=== PATIENT | female | born 1970 ===

== ENCOUNTER 2019-12-13 06:43 | Inpatient (IN) | payer OTHER ==
[2019-12-13] MEDS ORDERED: Ondansetron PF 4 MG/2 ML Vial IVP PRN (09:43)
[2019-12-13] MEDS ORDERED: Ondansetron ODT 4 MG TAB PO PRN (09:43)
[2019-12-13] MEDS ORDERED: Senokot S 8.6-50 MG TAB PO PRN (09:43)
[2019-12-13] MEDS ORDERED: Acetaminophen 325 MG TAB PO PRN (09:43)
[2019-12-13] MEDS ORDERED: Acetaminophen 650 MG Suppository PR PRN (09:43)
[2019-12-13] MEDS ORDERED: Bisacodyl 5 MG TAB PO PRN (09:43)
[2019-12-13] MEDS ORDERED: Calcium Carbonate 500 MG ChewTAB PO PRN (09:43)
[2019-12-13] MEDS ORDERED: Dexamethasone 4 MG in Sodium Chloride 0.9% 50 ML IVPB SCH ×3 (10:00→21:00)
--- NOTE | 2019-12-13 10:38 | RAD ---
Frontal radiograph chest: 12/13/2019 COMPARISON: None HISTORY: Shortness of breath, hypoxia FINDINGS: Shallow inspiration limits detailed assessment. Focal opacity in the left base noted with p artial obscuration of the left hemidiaphragm. Mild hazy density in the right perihilar/right infrahilar region. No pneumothorax. IMPRESSION: Focal opacity in the left lung base suspicious for infectious pneumonitis or aspiration. Hazy increased density in the right base may signify volume loss or mild airspace disease. PA and lateral imaging of the chest following treatment advised.
[2019-12-13 10:41] LABS: ALT (SGPT) 18 U/L (8-55); AST (SGOT) 26 U/L (5-34); Albumin 4.2 g/dL (3.5-5.0); Alkaline Phosphatase 66 U/L (40-110); Anion Gap 15 mmol/L (10-20); BUN (Urea Nitrogen) 16 mg/dL (9.8-20.1); Bilirubin, Total 0.2 mg/dL (0.2-1.2); Calc. Creatinine Clearance 0 mL/min (70-130); Calcium 8.9 mg/dL (7.8-10.44); Carbon Dioxide 28 mmol/L (22-29); Chloride 97 mmol/L (98-107); Estimated GFR-MDRD 88; Globulin 3.8 g/dL (2.4-3.5); Glucose 134 mg/dL (70-105); Sodium 136 mmol/L (136-145)
[2019-12-13] MEDS ORDERED: Azithromycin 250 MG TAB PO SCH (10:45)
--- NOTE | 2019-12-13 10:52 | PDOC.FPRHP ---
- History of Present Illness Chief Complaint: SOB, Hypoxia History of Present Illness: Patient is a 49 yo female with PMHx of HTN who presents for direct admission for COVID positive Pneumonia and hypoxia. Patient originally was tested 6 days ago (approx. 12/07/2019) but we have no record of it. Symptoms started on 12/05/2019 making today day 8 of symptoms. Main complaints include dry cough, shortness of breath, and intermittent diarrhea. Says she has had fevers, max temp 102.5F at home. Last time she had a fever >100.4F was on 12/12/2019. Patient keeps an finger O2 monitor at home. Says this morning she noticed she was having to work harder to breathe and so checked her O2 sat, it was 79-82% so she told her daughter to drive her to nearest ER. At [facility] was noted to have O2 sat in low 80s and this improved to 95% once placed on 2L O2 via N/C. Patient reports that she has a 13 yo son and 21 yo daughter, both are also positive for COVID but are "doing okay" at home. ED Course: Noted to have O2 sat in low 80s at [facility] urgent care. Was placed on 2 L N/C there and called Dr. Holm for direct admission. Per verbal report from ED physician did have a CXR which showed bilateral infiltrates suggestive of PNA. Patient's PCP is Dr. Shearer. - Allergies/Adverse Reactions Allergies Allergy/AdvReac Type Severity Reaction Status Date / Time No Known Allergies Allergy Unverified 12/13/19 10:18 - Home Medications Medication Instructions Recorded Confirmed Type Lisinopril 20 mg PO DAILY 12/13/19 12/13/19 History - History PMHx: HTN PSHx: LTCS x 2 FHx: noncontributory Social: Denies smoking or EtOH use. Lives with 13 yo son and 21 yo daughter. Daughter is to make medical decision for her if needed. Patient is but says has been from for 5 years and she does not want him to make decisions on her behalf. - Review of Systems General: reports: fever/chills, fatigue Eyes: denies: vision changes ENT: denies: nasal congestion, rhinorrhea Respiratory: reports: cough, shortness of breath. denies: congestion Cardiovascular: denies: chest pain, palpitation, edema Gastrointestinal: reports: diarrhea. denies: nausea, vomiting, constipation, abdominal pain Genitourinary: denies: dysuria Skin: denies: rashes, lesions, jaundice Musculoskeletal: denies: pain, swelling, arthritis/arthralgias Neurological: denies: weakness Psychological: denies: anxiety, depression - Vital signs BP: 127/82 HR: 74 RR: 20 Tmax: 98.0F Pox: 96% on 2L - Physical Exam Constitutional: NAD, awake, alert and oriented, well developed HEENT: normocephalic and atraumatic, EOMI, no scleral icterus, grossly normal vision, grossly normal hearing, MMM Neck: FROM, no JVD Chest: no lesions Heart: pulses present, no edema Lungs: no respiratory distress Abdomen: soft, non-tender, no masses/distention Musculoskeletal: normal structure, normal tone, ROM grossly normal Neurological: no focal deficit, normal sensation Skin: no rash/lesions, good turgor, no jaundice Heme/Lymphatic: no unusual bruising or bleeding Psychiatric: normal mood and affect, intact recent and remote memory FMR H&P: Results - Labs Result Diagrams: 12/14/19 05:10 12/14/19 05:10 Lab results: Sodium 136 mmol/L (136-145) 12/13/19 10:03 Potassium 4.0 mmol/L (3.5-5.1) 12/13/19 10:03 Chloride 97 mmol/L (98-107) L 12/13/19 10:03 Carbon Dioxide 28 mmol/L (22-29) 12/13/19 10:03 BUN 16 mg/dL (9.8-20.1) 12/13/19 10:03 Creatinine 0.70 mg/dL (0.6-1.1) 12/13/19 10:03 Glucose 134 mg/dL (70-105) H 12/13/19 10:03 Calcium 8.9 mg/dL (7.8-10.44) 12/13/19 10:03 Total Bilirubin 0.2 mg/dL (0.2-1.2) 12/13/19 10:03 AST 26 U/L (5-34) 12/13/19 10:03 ALT 18 U/L (8-55) 12/13/19 10:03 Alkaline Phosphatase 66 U/L (40-110) 12/13/19 10:03 C-Reactive Protein 3.17 mg/dL (= or < 0.5) H 12/13/19 10:03 Serum Total Protein 8.0 g/dL (6.0-8.3) 12/13/19 10:03 Albumin 4.2 g/dL (3.5-5.0) 12/13/19 10:03 - Radiology Interpretation Chest x-ray Status: image reviewed by me, report reviewed by me (focal opacity in the left lung base suspicious for infectious pneumonitis or aspiration. Hazy increased density in the right base may signify volume loss or mild airspace disease. No pneumothorax.) FMR H&P: A/P - Problem List (1) Pneumonia due to COVID-19 virus Current Visit: Yes Status: Acute Code(s): U07.1 - COVID-19; J12.89 - OTHER VIRAL PNEUMONIA (2) Acute respiratory failure with hypoxia Current Visit: Yes Status: Acute Code(s): J96.01 - ACUTE RESPIRATORY FAILURE WITH HYPOXIA (3) Hypertension Current Visit: Yes Status: Acute Code(s): I10 - ESSENTIAL (PRIMARY) HYPERTENSION (4) Prediabetes Current Visit: Yes Status: Acute Code(s): R73.03 - PREDIABETES - Plan Patient is a 49 yo female who presents with shortness of breath is found to be positive for COVID-19 with suspected PNA: #Acute Hypoxic Respiratory Failure 2/ COVID 19 -tested positive for COVID19 on 12/07/2019 at outside urgent care, unable to view record of test so will re-swab here -per patient, symptoms started on 12/05/2019, day 8 of symptoms -CXR shows mild infiltrates of bilateral lung bases suspicious for pneumonitis vs aspiration, will cover with Azithromycin x 5 day course -obtain CBC, CMP, CRP, Ferritin, Procal, DDimer -start on Dexamethasone 4 mg IVP BID -place on Lovenox for VTE prophylaxis -obtain baseline ABG to assess for silent hypoxemia -consider consult ID or Pulm for Remdesevir and/or Convalescent Plasma administration once labs result -place on continuous O2 monitoring #Hypertension -continue home med Lisinopril 20 mg daily -monitor vitals #Prediabetes -per patient was told recently by PCP Dr. Shearer that she had prediabetes, is not taking any medications for this -monitor glucose checks, will start SSI if needed Diet: Regular VTE: Lovenox 40 daily Code status: FULL, patient states that her daughter is to make medical decision for her if needed. Is but from for 5 years and working on divorce proceedings. Dispo: Stable, admit to inpatient on medical unit. Will order lab studies to further evaluate. Monitor respiratory status. Consider ID consult once labs result if candidate for Remdesevir and/or plasma. Anticipate LOS >48 hours. Addendum - Attending - Attending Attestation Date/Time: 12/14/19 4691 I personally evaluated the patient and discussed the management with Dr. Barreto yesterday. I agree with the History, Examination, Assessment and Plan documented above with any addition or exceptions noted below.
[2019-12-13 10:54] LABS: #Lymphocytes 0.9 thou/uL (1.20-3.40); #Monocytes 0.3 thou/uL (0.11-0.59); #Neutrophils 2.9 thou/uL (1.40-6.50); %Basophils 0.2 % (0.0-1.0); %Eosinophils 0.1 % (0.0-10.0); %Lymphocytes 21.7 % (21.0-51.0); %Monocytes 6.6 % (0.0-10.0); %Neutrophils 71.3 % (42.0-75.0); Mean Corpuscular HGB CONC 31.7 g/dL (32.0-36.0); Mean Corpuscular Volume 75.7 fL (78.0-98.0); Mean Platelet Volume 9.9 fL (7.4-10.4); Platelet Count 209 thou/uL (130-400); RBC Distribution Width 11.9 % (11.5-14.5); Red Blood Cell (RBC) Count 5.41 mill/uL (4.20-5.40)
[2019-12-13 10:55] LABS: Hypochromia SLIGHT = 6-15 cells (100X) (0-5/hpf); MDiff Complete? YES; Microcytosis SLIGHT = 6-15 cells (100X) (0-5/hpf); Platelet Morphology Comment Appears Adequate; Polychromasia SLIGHT = 2-3 cells (100X) (0-2/hpf)
[2019-12-13 10:56] LABS: Actual Bicarbonate (HCO3a) 24.3 mEq/L (22-28); Base Excess (BEa) 0.7 mEq/L (-2.0 to +3.0); CO2 Tension 35.8 mmHg (35.0-45.0); Calcium, Ionized (arterial) 1.12 mmol/L (1.12-1.30); Carboxyhemoglobin (COHb) 0.4 gm% (0.0-3.0); O2 Tension (PaO2), arterial 85.4 mmHg (80.0-100.0); Potassium - ABG Lab 3.78 mmol/L (3.70-5.30); pH, Arterial 7.45 (7.35-7.45)
[2019-12-13 10:59] LABS: Puncture Site RRA
[2019-12-13] MEDS: Guaifenesin DM 100-10/5 ML UDCUP PO PRN (11:11)
[2019-12-13] MEDS ORDERED: REMDESIVIR (EUA) 200 MG in Sodium Chloride 0.9% 250 ML 210 ML IV SCH (13:00)
[2019-12-13 16:23] VITALS: BMI 23.0
[2019-12-13 17:51] LABS: SARS-CoV-2 MS2 Positive; SARS-CoV-2 N Gene Positive; SARS-CoV-2 S Gene Positive; SARS-CoV-2 by NAA DETECTED (NotDetected); SARS-CoV-2 orf1ab Positive
--- NOTE | 2019-12-13 18:41 | CON ---
DATE OF CONSULTATION: 12/13/2019 REASON FOR CONSULTATION: COVID infection. HISTORY OF PRESENT ILLNESS: A 49-year-old with history of hypertension, who has been sick since 12/04, and 2 days later tested positive for COVID. She then has developed worsening dyspnea with fever. She was monitoring her oximetry at home and sats were dropped to 79 and 82, so she was admitted. On arrival, BP 120/80, heart rate 74, respiratory rate 22, T-max 98, and O2 saturation 96% on 2 L. The exam was fairly unremarkable including lung exam. Other findings included white cell count 4.0, hemoglobin 13, platelets 209 a lymphocytopenia with total lymphocyte count of 0.9. D-dimer 0.4. A pH of 7.45, pCO2 of 35, and pO2 of 85. Sodium 136, creatinine 0.7, and glucose 134 with normal liver profile. CRP was 3.17 and ferritin 163. Currently, the patient is feeling actually well. Denies any headaches. Shortness of breath has resolved. She has a little bit of cough. No chest pain. No diarrhea. Diminished sense of smell noted. No abdominal pain. No genitourinary symptoms. No joint symptoms. MEDICAL HISTORY: Hypertension. SURGICAL HISTORY: LTCS x2. FAMILY HISTORY: Noncontributory. SOCIAL HISTORY: Never smoker. Lives with son and daughter. ALLERGY HISTORY: Negative. CURRENT MEDICATIONS: 1. Decadron. 2. Azithromycin. 3. P.r.n. medications. PHYSICAL EXAMINATION: VITAL SIGNS: Temperature is 98, she is saturating 96 on 2 L nasal cannula. SKIN: Normal. No lymphadenopathy. LUNGS: With faint crackles at right base. HEART: S1 and S2. Regular rate. No S3 or S4. ABDOMEN: Soft, not distended or tender. No ascites. No bladder distention. EXTREMITIES: No joint inflammatory activity. NEUROLOGIC: Nonfocal. LABORATORY DATA: Labs have been discussed above. Chest x-ray with a focal opacity in left lung base and hazy increased density right base as well. ASSESSMENT: 1. Hypertension. 2. COVID infection with at least moderate pneumonia. 3. Significant hypoxemia, required O2 supplementation. Eight day of illness. Liver and kidney function are okay. We will go ahead and start on remdesivir. Continue Decadron. Discontinue azithromycin. Heparin prophylaxis. Monitor daily inflammatory markers. Check LDH as well. The endpoint will be improvement of oxygenation maybe to the stage where she is going to be on room air at acceptable levels and decrease in the markers including ferritin, CRP, and D-dimer. She is going to the middle of the second week and that is when things start to sometimes deteriorate rapidly, so she will have to be carefully monitored in the next few days . Job ID: [id number] MTDD
[2019-12-13] MEDS: Enoxaparin Sodium 40 MG/0.4 ML SYRINGE SC SCH (21:14)
[2019-12-13] MEDS: Dexamethasone 4 mg/ml Vial SLOW IVP SCH (21:14)
[2019-12-14 05:27] LABS: #Monocytes 0.5 thou/uL (0.11-0.59); #Neutrophils 6.6 thou/uL (1.40-6.50); %Basophils 0.3 % (0.0-1.0); %Eosinophils 0.1 % (0.0-10.0); %Lymphocytes 12.5 % (21.0-51.0); %Monocytes 6.5 % (0.0-10.0); %Neutrophils 80.7 % (42.0-75.0); Hemoglobin 11.9 g/dL (12.0-16.0); Mean Corpuscular HGB CONC 32.3 g/dL (32.0-36.0); Mean Corpuscular Hemoglobin 24.2 pg (27.0-31.0); Mean Corpuscular Volume 75.1 fL (78.0-98.0); Platelet Count 229 thou/uL (130-400); White Blood Cell (WBC) Count 8.2 thou/uL (4.8-10.8)
[2019-12-14 06:00] LABS: ALT (SGPT) 19 U/L (8-55); AST (SGOT) 23 U/L (5-34); Albumin 3.8 g/dL (3.5-5.0); Alkaline Phosphatase 55 U/L (40-110); Anion Gap 12 mmol/L (10-20); BUN (Urea Nitrogen) 15 mg/dL (9.8-20.1); Bilirubin, Total Less than 0.2 mg/dL (0.2-1.2); Calc. Creatinine Clearance 90 mL/min (70-130); Calcium 8.3 mg/dL (7.8-10.44); Carbon Dioxide 28 mmol/L (22-29); Chloride 102 mmol/L (98-107); Estimated GFR-MDRD Greater than 90; Globulin 3.3 g/dL (2.4-3.5); Glucose 168 mg/dL (70-105); Potassium 4.3 mmol/L (3.5-5.1); Protein, Total 7.1 g/dL (6.0-8.3); Sodium 138 mmol/L (136-145)
[2019-12-14] MEDS: Dexamethasone 4 mg/ml Vial SLOW IVP SCH ×2 (07:58→21:15)
[2019-12-14] MEDS: Enoxaparin Sodium 40 MG/0.4 ML SYRINGE SC SCH ×2 (07:58→21:15)
[2019-12-14] MEDS: Guaifenesin DM 100-10/5 ML UDCUP PO PRN ×2 (08:01→21:15)
[2019-12-14] MEDS ORDERED: Enoxaparin Sodium 40 MG/0.4 ML SYRINGE SC SCH (09:00)
[2019-12-14] MEDS ORDERED: Azithromycin 250 MG TAB PO SCH (09:00)
--- NOTE | 2019-12-14 09:18 | PDOC.FM ---
- Subjective Subjective: Patient feeling better this morning. Was given Convalescent plasma yesterday. Also approved and started on Remdesevir course. Spoke with brother Gillian per patient request and plan discussed. No complaints this morning. - Objective MAR Reviewed: Yes Vital Signs & Weight: Vital Signs (12 hours) Temp Pulse Pulse Resp BP BP Pulse Ox 12/14/19 08:24 98.0 F 62 20 125/81 96 12/14/19 05:00 98.2 F 64 18 124/72 100 12/14/19 02:45 98.2 F 62 18 110/72 99 12/14/19 00:45 97.9 F 67 18 124/80 98 12/14/19 00:28 98.1 F 60 18 117/77 100 12/13/19 23:29 98.2 F 64 20 118/72 100 Weight Weight 57.153 kg I&O: 12/13/19 12/14/19 12/15/19 06:59 06:59 06:59 Intake Total 1690 Balance 1690 Result Diagrams: 12/14/19 05:10 12/14/19 05:10 Phys Exam - Physical Examination Constitutional: NAD HEENT: moist MMs, sclera anicteric Neck: supple, full ROM No respiratory distress. Even respirations. Gastrointestinal: soft, non-tender, no distention Musculoskeletal: no edema, pulses present Neurological: non-focal, normal sensation, moves all 4 limbs Psychiatric: normal affect, A&O x 3 Skin: no rash, normal turgor Dx/Plan (1) Pneumonia due to COVID-19 virus Code(s): U07.1 - COVID-19; J12.89 - OTHER VIRAL PNEUMONIA Status: Acute (2) Acute respiratory failure with hypoxia Code(s): J96.01 - ACUTE RESPIRATORY FAILURE WITH HYPOXIA Status: Acute (3) Hypertension Code(s): I10 - ESSENTIAL (PRIMARY) HYPERTENSION Status: Acute (4) Prediabetes Code(s): R73.03 - PREDIABETES Status: Acute - Plan Plan: Patient is a 49 yo female who presents with shortness of breath is found to be positive for COVID-19 with suspected PNA: #Acute Hypoxic Respiratory Failure 2/2 COVID 19 -initially O2 sat 79-82% at home, was in low 80s at urgent care facility, upon admission here was requiring 3.5L via N/C -tested positive for COVID19 on 12/07/2019 at outside urgent care, re-swab here positive on 12/12 -per patient, symptoms started on 12/05/2019, day 9 of symptoms -CXR shows mild infiltrates of bilateral lung bases suspicious for pneumonitis vs aspiration -given one dose Azithromycin, ID recs no further course -monitor CBC, CMP, CRP, Ferritin, Procal, DDimer -CRP 3.17 -Procal 0.03 > 0.02 -Ferritin 163 > 143 -DDimer 0.41 > 0.36 -start on Dexamethasone 4 mg IVP BID -place on Lovenox for VTE prophylaxis -baseline ABG to assess for silent hypoxemia, is wml -consider consult ID, Dr. Gutierrez for Remdesevir -patient consent obtained on 12/12 and Remdesevir course started -Convalescent Plasma on 12/12 -place on continuous O2 monitoring -currently 98-100% on 2L N/C #Hypertension -continue home med Lisinopril 20 mg daily -monitor vitals #Prediabetes -per patient was told recently by PCP Dr. Shearer that she had prediabetes, is not taking any medications for this -monitor glucose checks, will start SSI if needed Diet: Regular VTE: Lovenox 40 BID Code status: FULL, patient states that her daughter is to make medical decision for her if needed. Is but from for 5 years and working on divorce proceedings. Dispo: Stable, admit to inpatient on medical unit. Monitor daily inflammatory labs. Monitor respiratory status. Anticipate LOS >48 hours. Addendum - Attending - Attending Attestation Date/Time: 12/14/19 1202 I personally evaluated the patient and discussed the management with Dr. Barreto. I agree with the History, Examination, Assessment and Plan documented above with any addition or exceptions noted below. Patient seemed tired and discouraged today. She also felt like something was jsut not right in her chest other than covid. We will repeat CXR, check troponin and EKG. We appreciate Dr Velázquez's expertise and medication adjustment this week. We will reach out to [facility] today. We have asked Palliative care to assist with helping her connect with family. THis may improve her mental health.
[2019-12-14] MEDS: REMDESIVIR (EUA) 100 MG in Sodium Chloride 0.9% 250 ML 230 ML IV SCH (12:18)
--- NOTE | 2019-12-14 14:12 | PRG ---
DATE OF SERVICE: 12/14/2019 SUBJECTIVE: The patient is feeling improvement, less cough, less dyspnea. She has been able to breathe deeper. OBJECTIVE: VITAL SIGNS: Has been afebrile for a while now. Nasal cannula O2 has decreased to 2, and she is saturating at 97, and she is not tachypneic at this point. LUNGS: Still with crackles, scattered through right and left lung carlson. HEART: S1 and S2, regular rate. ABDOMEN: Soft, not distended. NEUROLOGIC: Nonfocal. LABORATORY DATA: White cell count 8.2, hemoglobin 11.9, and platelets 229. D-dimer is 0.36. Ferritin down to 143. ASSESSMENT AND DISCUSSION: COVID-19 infection with pneumonia, [id number] hypertension. Looks like she is responding well to the therapy and starting to improve an inflammatory process. Hopefully, we will continue improvement, able to be discharged home with or without O2 supplementation soon. Job ID: [id number]
[2019-12-15 05:29] LABS: #Lymphocytes 1.3 thou/uL (1.20-3.40); #Monocytes 0.6 thou/uL (0.11-0.59); #Neutrophils 7.1 thou/uL (1.40-6.50); %Basophils 0.2 % (0.0-1.0); %Eosinophils 0.1 % (0.0-10.0); %Lymphocytes 14.3 % (21.0-51.0); %Monocytes 6.8 % (0.0-10.0); %Neutrophils 78.6 % (42.0-75.0); Hemoglobin 12.3 g/dL (12.0-16.0); Mean Corpuscular HGB CONC 31.9 g/dL (32.0-36.0); Mean Corpuscular Hemoglobin 24.1 pg (27.0-31.0); Mean Corpuscular Volume 75.5 fL (78.0-98.0); Platelet Count 267 thou/uL (130-400); RBC Distribution Width 12.1 % (11.5-14.5)
[2019-12-15 05:55] LABS: ALT (SGPT) 20 U/L (8-55); AST (SGOT) 18 U/L (5-34); Albumin 3.7 g/dL (3.5-5.0); Alkaline Phosphatase 55 U/L (40-110); Anion Gap 13 mmol/L (10-20); BUN (Urea Nitrogen) 15 mg/dL (9.8-20.1); Bilirubin, Total 0.2 mg/dL (0.2-1.2); CRP (Inflammatory) 1.04 mg/dL (= or < 0.5); Calc. Creatinine Clearance 94 mL/min (70-130); Calcium 8.2 mg/dL (7.8-10.44); Carbon Dioxide 26 mmol/L (22-29); Chloride 99 mmol/L (98-107); Estimated GFR-MDRD Greater than 90; Globulin 3.1 g/dL (2.4-3.5); Glucose 161 mg/dL (70-105); Potassium 4.4 mmol/L (3.5-5.1); Protein, Total 6.8 g/dL (6.0-8.3); Sodium 134 mmol/L (136-145)
--- NOTE | 2019-12-15 06:50 | PDOC.FM ---
- Subjective Subjective: Patient is feeling well and improving. She appears comfortable on NC O2. She had questions/concerns about when she can return to work and about how she can pay her bills. - Objective MAR Reviewed: Yes Vital Signs & Weight: Vital Signs (12 hours) Temp Pulse Resp BP Pulse Ox 12/15/19 05:00 97.9 F 60 18 136/84 98 12/14/19 21:00 98 F 68 18 135/80 97 12/14/19 20:00 97 Weight Admit Weight 57.153 kg Weight 57.153 kg I&O: 12/13/19 12/14/19 12/15/19 06:59 06:59 06:59 Intake Total 1690 820 Balance 1690 820 Result Diagrams: 12/15/19 05:09 12/15/19 05:09 Phys Exam - Physical Examination Constitutional: NAD Respiratory: no wheezing, clear to auscultation bilateral Cardiovascular: RRR, no significant murmur Gastrointestinal: soft, no distention Musculoskeletal: no edema, pulses present Psychiatric: normal affect, A&O x 3 Dx/Plan - Plan Plan: Patient is a 49 yo female who presents with shortness of breath is found to be positive for COVID-19 with suspected PNA: #Acute Hypoxic Respiratory Failure 2/ COVID 19 -tested positive for COVID19 on 12/07/2019 at outside urgent care, re-swab here positive on 12/12 -per patient, symptoms started on 12/05/2019, day 10 of symptoms -1 dose azithromycin given then discontinued per ID -monitor inflammatory markers. -Dexamethasone 4 mg IVP BID -Lovenox for VTE prophylaxis -consider consult ID, Dr. Gutierrez for Remdesevir, s/p convalescent plasma -wean O2 #Hypertension -continue home med Lisinopril 20 mg daily -monitor vitals #Prediabetes -per patient was told recently by PCP Dr. Shearer that she had prediabetes, is not taking any medications for this -monitor glucose checks, will start SSI if needed Diet: Regular VTE: Lovenox 40 BID Code status: FULL, patient states that her daughter is to make medical decision for her if needed. Is but from for 5 years and working on divorce proceedings. Dispo: Stable, admit to inpatient on medical unit. Monitor daily inflammatory labs. Monitor respiratory status. Anticipate LOS >48 hours. Addendum - Attending - Attending Attestation Date/Time: 12/15/19 1288 I personally evaluated the patient and discussed the management with Dr. Rodriguez. I agree with the History, Examination, Assessment and Plan documented above with any addition or exceptions noted below.
[2019-12-15] MEDS: Dexamethasone 4 mg/ml Vial SLOW IVP SCH ×2 (08:08→20:59)
[2019-12-15] MEDS: Enoxaparin Sodium 40 MG/0.4 ML SYRINGE SC SCH ×2 (08:08→20:59)
[2019-12-15] MEDS: REMDESIVIR (EUA) 100 MG in Sodium Chloride 0.9% 250 ML 230 ML IV SCH (12:41)
[2019-12-15] MEDS: Guaifenesin DM 100-10/5 ML UDCUP PO PRN (20:59)
[2019-12-16 05:52] LABS: #Lymphocytes 1.6 thou/uL (1.20-3.40); #Monocytes 0.7 thou/uL (0.11-0.59); #Neutrophils 6.3 thou/uL (1.40-6.50); %Basophils 0.2 % (0.0-1.0); %Eosinophils 0.1 % (0.0-10.0); %Lymphocytes 18.7 % (21.0-51.0); %Monocytes 7.9 % (0.0-10.0); %Neutrophils 73.1 % (42.0-75.0); Hemoglobin 12.6 g/dL (12.0-16.0); Mean Corpuscular HGB CONC 31.5 g/dL (32.0-36.0); Mean Corpuscular Volume 76.3 fL (78.0-98.0); Mean Platelet Volume 9.1 fL (7.4-10.4); Platelet Count 296 thou/uL (130-400); Red Blood Cell (RBC) Count 5.26 mill/uL (4.20-5.40); White Blood Cell (WBC) Count 8.6 thou/uL (4.8-10.8)
[2019-12-16 06:04] LABS: ALT (SGPT) 26 U/L (8-55); AST (SGOT) 19 U/L (5-34); Albumin 3.6 g/dL (3.5-5.0); Alkaline Phosphatase 54 U/L (40-110); Anion Gap 13 mmol/L (10-20); BUN (Urea Nitrogen) 16 mg/dL (9.8-20.1); Bilirubin, Total 0.2 mg/dL (0.2-1.2); Calc. Creatinine Clearance 90 mL/min (70-130); Calcium 8.3 mg/dL (7.8-10.44); Carbon Dioxide 27 mmol/L (22-29); Chloride 100 mmol/L (98-107); Estimated GFR-MDRD Greater than 90; Globulin 3.3 g/dL (2.4-3.5); Glucose 170 mg/dL (70-105); Potassium 4.5 mmol/L (3.5-5.1); Protein, Total 6.9 g/dL (6.0-8.3); Sodium 135 mmol/L (136-145)
[2019-12-16] MEDS: Dexamethasone 4 mg/ml Vial SLOW IVP SCH ×2 (07:40→20:41)
[2019-12-16] MEDS: Enoxaparin Sodium 40 MG/0.4 ML SYRINGE SC SCH ×2 (07:40→20:41)
--- NOTE | 2019-12-16 09:26 | PDOC.FM ---
- Subjective Subjective: Feeling the same. Off of oxygen today. Mood is stable - Objective MAR Reviewed: Yes Vital Signs & Weight: Vital Signs (12 hours) Temp Pulse Resp BP Pulse Ox 12/16/19 08:00 98.1 F 63 18 147/87 H 97 12/16/19 07:16 97 12/16/19 04:00 98.1 F 62 18 128/79 97 12/15/19 23:59 97 12/15/19 23:58 98 F 64 18 97 Weight Admit Weight 57.153 kg Weight 57.153 kg I&O: 12/15/19 12/16/19 12/17/19 06:59 06:59 06:59 Intake Total 820 2590 Balance 820 2590 Result Diagrams: 12/16/19 05:37 12/16/19 05:37 Phys Exam - Physical Examination Constitutional: NAD HEENT: moist MMs Respiratory: no wheezing unchanged, stable. Cardiovascular: RRR, no significant murmur Psychiatric: normal affect, A&O x 3 Dx/Plan - Plan Plan: Patient is a 49 yo female who presents with shortness of breath is found to be positive for COVID-19 with suspected PNA: #Acute Hypoxic Respiratory Failure 2/ COVID 19, improved. -tested positive for COVID19 on 12/07/2019 at outside urgent care, re-swab here p ositive on 12/12 -per patient, symptoms started on 12/05/2019, day 11 of symptoms -monitor inflammatory markers. -Dexamethasone 4 mg IVP BID. transition to PO tomorrow. - on remdesivir, monitor LFT/CBC, complete course tomorrow. #Hypertension -continue home med Lisinopril 20 mg daily #Prediabetes - monitor. Diet: Regular VTE: Lovenox 40 BID Code status: FULL Dispo: inpatient medical. Discharge home after completion of remdesivir. Addendum - Attending - Attending Attestation Date/Time: 12/16/19 1102 I personally evaluated the patient and discussed the management with Dr. Rodriguez. I agree with the History, Examination, Assessment and Plan documented above with any addition or exceptions noted below.
[2019-12-16] MEDS: REMDESIVIR (EUA) 100 MG in Sodium Chloride 0.9% 250 ML 230 ML IV SCH (12:24)
[2019-12-17 05:51] LABS: #Lymphocytes 1.7 thou/uL (1.20-3.40); #Monocytes 0.7 thou/uL (0.11-0.59); #Neutrophils 5.3 thou/uL (1.40-6.50); %Basophils 0.4 % (0.0-1.0); %Eosinophils 0.1 % (0.0-10.0); %Lymphocytes 21.7 % (21.0-51.0); %Monocytes 8.5 % (0.0-10.0); %Neutrophils 69.2 % (42.0-75.0); Hemoglobin 12.4 g/dL (12.0-16.0); Mean Corpuscular Hemoglobin 24.3 pg (27.0-31.0); Mean Platelet Volume 9.1 fL (7.4-10.4); Platelet Count 334 thou/uL (130-400); Red Blood Cell (RBC) Count 5.12 mill/uL (4.20-5.40); White Blood Cell (WBC) Count 7.6 thou/uL (4.8-10.8)
[2019-12-17 06:12] LABS: ALT (SGPT) 32 U/L (8-55); AST (SGOT) 22 U/L (5-34); Albumin 3.5 g/dL (3.5-5.0); Alkaline Phosphatase 52 U/L (40-110); Anion Gap 11 mmol/L (10-20); BUN (Urea Nitrogen) 15 mg/dL (9.8-20.1); Bilirubin, Total 0.2 mg/dL (0.2-1.2); Calc. Creatinine Clearance 91 mL/min (70-130); Calcium 8.2 mg/dL (7.8-10.44); Carbon Dioxide 27 mmol/L (22-29); Chloride 98 mmol/L (98-107); Estimated GFR-MDRD Greater than 90; Glucose 192 mg/dL (70-105); Potassium 4.1 mmol/L (3.5-5.1); Protein, Total 6.5 g/dL (6.0-8.3); Sodium 132 mmol/L (136-145)
[2019-12-17] MEDS: Dexamethasone 4 mg/ml Vial SLOW IVP SCH (09:20)
[2019-12-17] MEDS: Enoxaparin Sodium 40 MG/0.4 ML SYRINGE SC SCH (09:20)
--- NOTE | 2019-12-17 11:21 | PDOC.FM ---
- Subjective Subjective: Patient feeling well this morning. Has remained on room air for last 3 days and is up walking around room. Due to receive last dose of Remdesevir at 1215. - Objective MAR Reviewed: Yes Vital Signs & Weight: Vital Signs (12 hours) Temp Pulse Resp BP Pulse Ox 12/17/19 09:20 98 12/17/19 04:13 97.8 F 64 18 128/82 94 L Weight Admit Weight 57.153 kg Weight 57.153 kg I&O: 12/16/19 12/17/19 12/18/19 06:59 06:59 06:59 Intake Total 2590 1650 Balance 2590 1650 Result Diagrams: 12/17/19 05:16 12/17/19 05:16 Phys Exam - Physical Examination Constitutional: NAD HEENT: moist MMs Neck: no JVD, supple, full ROM even respirations, equal chest rise and fall, no respiratory distress Cardiovascular: RRR Gastrointestinal: soft, no distention Musculoskeletal: no edema, pulses present Neurological: non-focal, normal sensation, moves all 4 limbs Psychiatric: normal affect, A&O x 3 Skin: no rash, normal turgor Dx/Plan (1) Pneumonia due to COVID-19 virus Code(s): U07.1 - COVID-19; J12.89 - OTHER VIRAL PNEUMONIA Status: Acute (2) Acute respiratory failure with hypoxia Code(s): J96.01 - ACUTE RESPIRATORY FAILURE WITH HYPOXIA Status: Acute (3) Hypertension Code(s): I10 - ESSENTIAL (PRIMARY) HYPERTENSION Status: Acute (4) Prediabetes Code(s): R73.03 - PREDIABETES Status: Acute - Plan Plan: Patient is a 49 yo female who presents with shortness of breath is found to be positive for COVID-19 with suspected PNA: #Acute Hypoxic Respiratory Failure 2/2 COVID 19, improved. -tested positive for COVID19 on 12/07/2019 at outside urgent care, re-swab here positive on 12/12 -per patient, symptoms started on 12/05/2019, day 12 of symptoms -monitor inflammatory markers. -Dexamethasone 4 mg IVP BID. transition to PO Prednisone upon discharge - on remdesivir, monitor LFT/CBC, complete course today at 1215 #Hypertension -continue home med Lisinopril 20 mg daily #Prediabetes - monitor. Diet: Regular VTE: Lovenox 40 BID Code status: FULL Dispo: inpatient medical. Discharge home today after completion of remdesivir.
[2019-12-17] MEDS: REMDESIVIR (EUA) 100 MG in Sodium Chloride 0.9% 250 ML 230 ML IV SCH (13:27)
--- NOTE | 2019-12-17 13:48 | PRG ---
DATE OF SERVICE: 12/17/2019 Ms. Sanchez is followed for COVID pneumonia as well as acute respiratory failure, hypertension, and prediabetes. She is feeling well this morning and has been on room air now for 3 days. I agree with the assessment and plan of . Job ID: [id number]
[2019-12-17 16:20] VITALS: BP 121/80; TEMP 97.9
--- NOTE | 2019-12-18 01:16 | DIS ---
DATE OF ADMISSION: 12/13/2019 DATE OF DISCHARGE: 12/17/2019 CONSULTS: Infectious Disease, Dr. Gutierrez. PROCEDURES: Chest x-ray on December 13, 2019: Focal opacity in the left lung base suspicious for infectious pneumonitis versus aspiration. Hazy increased density in the right base, may signify volume loss or mild airspace disease. PRIMARY DIAGNOSIS: Acute hypoxic respiratory failure secondary to COVID-19. SECONDARY DIAGNOSES: 1. Hypertension. 2. Prediabetes. DISCHARGE MEDICATIONS: 1. Lisinopril 20 mg p.o. daily. 2. Prednisone 40 mg p.o. daily for 5 additional days. DISCONTINUED MEDICATIONS: None. HISTORY OF PRESENT ILLNESS/HOSPITAL COURSE: The patient is a 49-year-old female with past medical history of hypertension, who presented for direct admission from [facility] for COVID-19 positive respiratory failure with hypoxia. The patient was originally tested with [facility] on December 07, 2019 and was found to be positive. Symptoms started on December 05, 2019, making her day #8 of symptoms upon admission. The patient's main complaints included a dry cough, shortness of breath, and intermittent diarrhea. The patient stated that she had fevers with a maximum temperature 102.5 Fahrenheit at home. Fevers lasted until December 12, 2019, and she had no fever since. The patient keeps a finger O2 monitor at home and stated on the morning of admission she noted she was having to work harder to breathe. When she checked her oxygen saturation, it was 79% to 82% , and so her daughter drove her to the closest Urgent Care. At [facility], the patient was noted to have oxygen saturations in the low 80s and this improved to 95% when she was placed on 2 L of oxygen via nasal cannula. The patient reported that she had a 13-year-old son and 21-year-old daughter, who were also positive for COVID symptoms but were doing okay with home management. The patient was admitted to inpatient on the medical floor. Chest x-ray was performed and was consistent with COVID-19. The patient also had COVID test repeated due to being unable to access the original test result. COVID testing at our facility confirmed COVID-19 positive. At this point, Infectious Disease, Dr. Gutierrez was consulted for remdesivir and convalescent plasma therapy. He approved this therapy which was started on December 13, 2019. The patient was also started on dexamethasone 4 mg IVP b.i.d., which she continued for duration of stay; this was transitioned to p.o. prednisone on day of discharge and will need to be continued for 5 additional days. The patient received the Lovenox therapeutic dosing during the hospital stay. The patient's home medication of lisinopril 20 mg daily was continued. The patient initially required oxygen support with 2 to 3 L via nasal cannula for first 2 days of admission. On December 13 afternoon, she was transitioned to room air and remained on room air for rest of stay. The patient's inflammatory markers including procalcitonin, ferritin, D-dimer, and CRP all were trended and trended down during her stay. The patient's clinical condition continued to improve. On December 17, 2019, the patient was discharged to home in a stable condition after completion of her remdesivir course. DISPOSITION: Stable. DISCHARGE INSTRUCTIONS: 1. Location: Home. 2. Diet: Regular. 3. Activity: As tolerated. 4. Follow up with PCP, Dr. Shearer in 7 days for hospital followup. Job ID: [id number]
== END 2019-12-17 16:29 | disposition home or self-care (01) | DRG 177 ==
LOC: T4-B 06:43 → UNDOADMIN 06:54
PROVIDERS: ADMIT Family Medicine; ATTEND Family Medicine
PROC: 8E0ZXY6 Isolation (ICD-10-PCS; principal; 2019-12-13)
PROC: XW033E5 Introduction of Remdesivir Anti-infective into Peripheral Vein, Percutaneous Approach, New Technology Group 5 (ICD-10-PCS; 2019-12-13)
PROC: XW13325 Transfusion of Convalescent Plasma (Nonautologous) into Peripheral Vein, Percutaneous Approach, New Technology Group 5 (ICD-10-PCS; 2019-12-14)
PROC: XW033E5 Introduction of Remdesivir Anti-infective into Peripheral Vein, Percutaneous Approach, New Technology Group 5 (ICD-10-PCS; 2019-12-17)
DX: U07.1 COVID-19 (principal); J96.01 Acute respiratory failure with hypoxia; J12.89 Other viral pneumonia; I10 Essential (primary) hypertension; R73.03 Prediabetes; Z79.899 Other long term (current) drug therapy
CPT/HCPCS: 36415; 36430; 71045; 80053; 82728; 82805; 84145; 85025; 85379; 86140; 86850; 86900; 86901; 87635; J1100; J1650; J7050; P9017; U0003